=== PATIENT | female | born 1995 | race Caucasian/White ===

== ENCOUNTER 2018-12-14 20:09 | Emergency (ER) | payer SELFPAY ==
[~2018-12-14] VITALS: Ht 160 cm; Wt 62.7 kg
[2018-12-14 20:14] VITALS: Ht 160 cm; Wt 62.7 kg
[2018-12-14] MEDS ORDERED: ONDANSETRON (ODT) 4 MG TAB ODT STA (23:16)
[2018-12-14] MEDS ORDERED: KETOROLAC 30 MG INJ IM STA (23:16)
[2018-12-14] MEDS ORDERED: DIPHENHYDRAMINE 50 MG INJ IM ONE (23:30)
--- NOTE | 2018-12-14 23:31 | ERD ---
ER Documentation Chief Complaint Chief Complaint pt is bib self with c/o headache, vomiting since earlier today HPI 22-year-old female complaining of headache times 1 day. Patient states that the pain is along the central and top of her head, she is reporting feeling neck pain, photophobia, nausea. She vomited 5 times today. Patient took Tylenol for headache, last dose was 7 hours ago. Patient states that for the last 2-3 weeks, she has been having headaches about 3 times a week. Denies recent head injury. Denies blurry vision. Denies one-sided weakness or numbness. Patient receiving Depo-Provera injection for control. ROS All systems reviewed and are negative except as per history of present illness. Medications Home Meds Active Scripts Ibuprofen* (Motrin*) 600 Mg Tab, 600 MG PO Q6H PRN for PAIN AND OR ELEVATED TEMP, #30 TAB Prov:STEVEN LEES. W[employer]NER 12/15/18 Acetaminophen* (Tylophen*) 500 Mg Capsule, 1 CAP PO Q6H PRN for PAIN AND OR ELEVATED TEMP, #20 CAP Prov:STEVEN LEES. W[employer]INNER 12/15/18 Allergies Allergies: Coded Allergies: No Known Allergy (Unverified , 12/14/18) PMhx/Soc Medical and Surgical Hx: pt denies Medical Hx, pt denies Surgical Hx Hx Alcohol Use: Yes (OCCASIONAL) Hx Substance Use: No Hx Tobacco Use: No Smoking Status: Never smoker Physical Exam Vitals Vital Signs Date Temp Pulse Resp B/P (MAP) Pulse Ox O2 O2 Flow FiO2 Time Delivery Rate 12/14/18 98.1 95 20 123/77 97 20:14 (92) Physical Exam General: Well-developed, well-nourished, conscious and coherent, in no distress Skin: Warm and dry without rash, good texture and turgor Head: Normocephalic without evidence of trauma Eyes: Sclera and conjunctivae normal; pupils equal, round, and reactive to light; extraocular movements are intact Neck: Supple without meningismus or adenopathy. Carotids are equal. Trachea midline. No bruits or JVD. Bilateral sternocleidomastoid and upper trapezius muscle tension. Chest: Normal AP diameter. Good expansion without retractions. Nontender. Lungs are clear to auscultate bilaterally with good tidal volume Heart: Regular rate and rhythm. No murmur, rub, or gallops heard Extremities: Full range of motion. Good strength bilaterally. No erythema, ecchymosis, or edema. Peripheral pulses are intact. Sensation intact Neuro: Alert and oriented 4; GCS 15. Cranial nerves II - XII intact. Motor sensory exam nonfocal. Moves all extremities. Deep tendon reflexes 2+ in all extremities. Speech clear. No pronator drift. Gait steady. Results 24 hrs Current Medications Medications Dose Sig/Lakhwinder Start Time Status Last (Trade) Ordered Route PRN Stop Time Admin Dose Reason Admin Ondansetron 4 mg ONCE STAT 12/14/18 DC 12/14/18 HCl (Zofran ODT 23:16 23:30 Odt) 12/14/18 23:18 Ketorolac 30 mg ONCE STAT 12/14/18 DC 12/14/18 Tromethamine IM 23:16 23:31 (Toradol) 12/14/18 23:18 25 mg ONCE ONCE 12/14/18 DC 12/14/18 Diphenhydrami IM 23:30 23:31 ne HCl 12/14/18 23:31 (Benadryl) Procedures/MDM 22-year-old female present ED with headache times 1 day. Her history and exam findings are consistent with tension headache. I doubt pseudotumor cerebri, meningitis, encephalitis, giant cell arteritis, glaucoma, subarachnoid hemorrhage, subdural or epidural hematoma, intracranial bleeding or tumor. Patient given Toradol IM, Benadryl IM, and Zofran p.o. in the ED. patient reports improvement in pain after medication. Is advised to apply heating pad to her neck and shoulder, and obtain a massage to relieve the muscle tension. Patient appears well, stable for discharge and outpatient management. Medical decision making shared with patient and family. Education provided to patient and family. Patient and family expressed understanding of the plan. Medications on discharge: Tylenol, ibuprofen. Follow-up: Primary care provider in 2-3 days or return to ED if worse. Disclaimer: Inadvertent spelling and grammatical errors are likely due to EHR/dictation software use and do not reflect on the overall quality of patient care. Also, please note that the electronic time recorded on this note does not necessarily reflect the actual time of the patient encounter. Departure Diagnosis: Primary Impression: Headache Headache type: tension-type Headache chronicity pattern: acute headache Intractability: not intractable Qualified Codes: G44.209 - Tension-type headache, unspecified, not intractable Condition: Stable STEVEN LEES NP Dec 14, 2018 23:31
[2018-12-15] MEDS ORDERED: IBUP-1542 PO (00:28)
[2018-12-15] MEDS ORDERED: ACET500C5 PO (00:28)
[2018-12-15 00:53] VITALS: BP 113/70; PULSE 91; RESP 16
== END 2018-12-15 00:55 | disposition home or self-care (01) ==
LOC: FTE 20:09
DX: G44.209 Tension-type headache, unspecified, not intractable (principal); R40.2412 Glasgow coma scale score 13-15, at arrival to emergency department
CPT/HCPCS: 96372; 99284; J1200; J1885